=== PATIENT | male | born 2000 | race Caucasian/White ===

== ENCOUNTER 2024-01-12 20:12 | Emergency (ER) | payer OTHER ==
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
--- NOTE | 2024-01-12 21:05 | RAD REPORT ---
EXAM DESCRIPTION: RAD - Hand Right 3 View - 01/12/2024 8:58 pm CLINICAL HISTORY: PAIN COMPARISON: No comparisons FINDINGS: No fracture or dislocation.
--- NOTE | 2024-01-12 21:06 | RAD REPORT ---
EXAM DESCRIPTION: RAD - Ankle Left 3 View - 01/12/2024 8:58 pm CLINICAL HISTORY: PAIN COMPARISON: No comparisons FINDINGS: Mild soft tissue swelling. No fracture or dislocation seen.
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
[2024-01-12 21:39] VITALS: BP 133/83; TEMP 97.7; O2SAT 98
== END 2024-01-12 21:18 | disposition home or self-care (01) ==
LOC: ER 20:12
DX: S09.90XA Unspecified injury of head, initial encounter (principal); S60.221A Contusion of right hand, initial encounter; M25.572 Pain in left ankle and joints of left foot; F17.220 Nicotine dependence, chewing tobacco, uncomplicated
CPT/HCPCS: 70450; 72125; 99282

== ENCOUNTER 2025-06-04 16:46 | Emergency (ER) | payer BC ==
[2025-06-04 17:33] LABS: Absolute Lymphocytes (CBC) 2.6 K/uL (0.7-4.9); Hematocrit 44.2 % (39.6-49.0); Hemoglobin 14.9 g/dL (13.6-17.9); MCH 29.1 pg (27.0-35.0); MCHC 33.7 g/dL (32.0-36.0); MCV 86.4 fL (80-100); MPV 7.7 fL (7.6-11.3); Nucleated RBC Absolute Count 0.0 (0-0); Nucleated Red Blood Cells % 0.1 % (0-0); RBC Red Blood Cell Count 5.12 M/uL (4.33-5.43); White Blood Count 10.20 thou/uL (4.3-10.9)
[2025-06-04 17:52] LABS: ALT/SGPT 92.0 U/L (16-61); AST/SGOT 52.0 U/L (15-37); Albumin 3.8 g/dL (3.4-5.0); Albumin/Globulin Ratio 1.0 (1.1-1.8); Alkaline Phosphatase 52.0 U/L (45-117); Anion Gap 7.5 mEq/L (5.0-15.0); BUN Blood Urea Nitrogen 14.0 mg/dL (7-18); Globulin 4.0 g/dL (2.3-3.5); Glucose Level 91.0 mg/dL (74-106); Lipase 16.0 U/L (13-75); Potassium 3.5 mEq/L (3.5-5.1)
[2025-06-04] MEDS ORDERED: NA CHLORIDE 0.9% 1,000 ML ONE (19:25)
[2025-06-04] MEDS ORDERED: FAMOTIDINE 20 MG/2 ML VIAL IV ONE (19:25)
[2025-06-04] MEDS ORDERED: ONDANSETRON 4 MG/2 ML VIAL ONE (19:25)
--- NOTE | 2025-06-04 19:40 | RAD REPORT ---
EXAMINATION: CT ABDOMEN AND PELVIS WITH CONTRAST CLINICAL INDICATION: ABD PAIN TECHNIQUE: CT abdomen and pelvis was performed, after the administration of IV contrast, [facility]. Axial, sagittal and coronal reconstructions were obtained. One or more of the following dose reduction techniques were used: Automated exposure control, adjustment of the mA and k V according to patient size, and iterative reconstruction. Unless otherwise specified, incidental findings do not require dedicated imaging follow-up. COMPARISON: 03/12/2025 FINDINGS: LOWER CHEST: The visualized lung bases are clear. LIVER: Mild fatty liver is present. No focal lesion or biliary dilatation is seen. Cholecystectomy clips. SPLEEN: Normal size. No focal lesion. PANCREAS: No mass, ductal dilation, or anay-pancreatic fluid. ADRENALS: Normal; no mass. KIDNEYS: Normal size and contour. No hydronephrosis. GASTROINTESTINAL TRACT: No evidence of free air, significant intra-abdominal free fluid, bowel obstru ction or abscess. APPENDIX: Normal appendix. LYMPH NODES: Scattered upper limit of normal small bowel mesenteric nodes. MUSCULOSKELETAL: Mild multilevel spinal degenerative changes. ADDITIONAL FINDINGS: Small fat-containing umbilical hernia. Small fat-containing right inguinal herni a. IMPRESSION: Scattered mildly prominent mesenteric lymph nodes in the small bowel mesentery, nonspecific. This may indicate mild mesenteric adenitis or mesenteritis. Suggest follow-up surveillance CT in 6 months to ensure resolution.
--- NOTE | 2025-06-04 19:46 | ER ---
Nurse's Notes [facility] Name: Digna Wren Age: 24 yrs Sex: Male : 2000 Arrival Date: 06/04/2025 Time: 16:46 Bed 15 Private MD: Diagnosis: Nonspecific mesenteric lymphadenitis;Abdominal pain, Generalized;Nausea with vomiting, unspecified Presentation: 06/04 16:53 Chief complaint: Patient states: SWEATS, NAUSEA AND UPSET STOMACH THAT BEGAN A WEEK dd2 AGO, THE PAST FOUR DAYS HAVING DIARRHEA, VOMITING, NAUSEA AND WORSE ABDOMINAL PAIN. Coronavirus screen: At this time, the client does not indicate any symptoms associated with coronavirus-19. Ebola Screen: No symptoms or risks identified at this time. Initial Sepsis Screen: Does the patient meet any 2 criteria? No. Patient's initial sepsis screen is negative. Does the patient have a suspected source of infection? No. Patient's initial sepsis screen is negative. Risk Assessment: Do you want to hurt yourself or someone else? Patient reports no desire to harm self or others. Onset of symptoms was May 28, 2025. 16:53 Method Of Arrival: Ambulatory dd2 16:53 Acuity: MARTA 3 dd2 Triage Assessment: 16:58 General: Appears in no apparent distress. uncomfortable, Behavior is calm, cooperative, dd2 appropriate for age. Pain: Complains of pain in umbilical area. GI: Reports diarrhea, nausea, vomiting. Historical: - Allergies: 16:58 No Known Allergies; dd2 - PMHx: 16:58 3 hernia's; Anxiety; Hypothyroidism; dd2 - PSHx: 16:58 knee; dd2 - Immunization history:: Adult Immunizations unknown. - Infectious Disease History:: Denies. - Social history:: Smoking status: Patient denies any tobacco usage or history of. - Family history:: not pertinent. - Hospitalizations: : No recent hospitalization is reported. Screenin:[address] [facility] ED Fall Risk Assessment (Adult) History of falling in the last 3 months, rg5 including since admission No falls in past 3 months (0 pts) Confusion or Disorientation No (0 pts) Intoxicated or Sedated No (0 pts) Impaired Gait No (0 pts) Mobility Assist Device Used No (0 pt) Altered Elimination No (0 pt) Score/Fall Risk Level 0 - 2 = Low Risk Oriented to surroundings, Maintained a safe environment, Hourly rounding (assess needs \T\ fall precautionary measures) done. Abuse screen: Denies threats or abuse. Nutritional screening: No deficits noted. Tuberculosis screening: No symptoms or risk factors identified. Assessment: 19:39 General: Appears in no apparent distress. comfortable, Behavior is calm, cooperative, rg5 appropriate for age. Pain: Complains of pain in abdomen Quality of pain is described as aching. Neuro: Level of Consciousness is awake, alert, obeys commands, Oriented to person, place, time, situation. Cardiovascular: Denies chest pain. Respiratory: Airway is patent Trachea midline Respiratory effort is even, unlabored, Respiratory pattern is regular, symmetrical. GI: Bowel sounds present in left upper quadrant Abd is soft and non tender Reports upper abdominal pain, diarrhea, vomiting. : No signs and/or symptoms were reported regarding the genitourinary system. EENT: No deficits noted. Derm: Skin is intact, Skin is dry, Skin is normal, Skin temperature is warm. Musculoskeletal: Circulation, motion, and sensation intact. Range of motion: intact in all extremities. Vital Signs: 16:53 BP 158 / 85; Pulse 87; Resp 17; Temp 98.3; Pulse Ox 97% on R/A; Weight 179.17 kg; dd2 Height 6 ft. 2 in. ; Pain 3/10; 19:35 BP 144 / 82; Pulse 83; Resp 18; Pulse Ox 99% ; rg5 16:53 Body Mass Index 50.71 (179.17 kg, 187.96 cm) dd2 16:53 Pain Scale: Adult dd2 ED Course: 16:49 Patient arrived in ED. al6 16:50 Jos Oropeza PA-C is PHCP. cp 16:50 Roberto Durham MD is Attending Physician. cp 16:58 Triage completed. dd2 16:58 Arm band placed on left wrist. dd2 17:27 CBC with Diff Sent. ty 17:27 CMP Sent. ty 17:27 Lipase Sent. ty 17:27 Initial lab(s) drawn, by ED staff, sent to lab. Inserted saline lock: 20 gauge in left ty antecubital area, using aseptic technique. Blood collected. Flushed with 10 mL NS. 18:45 Miguelangel Palacio, AMOS is Primary Nurse. rg5 19:01 Attending Physician role handed off by Roberto Durham MD tt7 19:01 Mulugeta Allred DO is Attending Physician. tt7 19:06 CT Abd/Pelvis - IV Contrast Only In Process Unspecified. EDMS 19:39 Patient has correct armband on for positive identification. Bed in low position. Call rg5 light in reach. Side rails up X 1. Door closed. Noise minimized. 19:39 No provider procedures requiring assistance completed. rg5 20:00 IV discontinued, bleeding controlled, No redness/swelling at site. Pressure dressing rg5 applied. Administered Medications: 19:34 Drug: Famotidine IVP 20 mg IVP once; dilute with 10 mL 0.9% NaCl; give over 2 minutes rg5 Route: IVP; Site: right antecubital; 20:00 Follow up: Response: No adverse reaction rg5 19:34 Drug: Ondansetron IVP 4 mg IVP once; over 2 minutes Route: IVP; Site: right antecubital;rg5 20:22 Follow up: Response: No adverse reaction rg5 19:34 Drug: NS 0.9% IV 1000 ml IV at 1 bolus Per protocol; to be given as a bolus over 60 rg5 minutes Route: IV; Rate: 1 bolus; Site: right antecubital; 20:15 Follow up: IV Status: Completed infusion; IV Intake: 1000ml rg5 Medication: 19:39 VIS not applicable for this client. rg5 Intake: 20:15 IV: 1000ml; Total: 1000ml. rg5 Outcome: 19:45 Discharge ordered by . tt7 20:15 Discharged to home ambulatory, rg5 20:15 Condition: stable 20:15 Discharge instructions given to patient, Instructed on discharge instructions, Demonstrated understanding of instructions, Prescriptions given X 1, 20:17 Patient left the ED. vk Signatures: Dispatcher [employer] EDME Roberto Durham MD MD rn Page, Corey, PA-C PA-C cp Kruse, Vivian vk Yandell, Tylor ty Gallardo, Rommel, RN RN rg5 KJ CLANCY RN RN dd2 Catherine Garner al6 Mulugeta Allred DO DO tt7 Corrections: (The following items were deleted from the chart) 17:01 16:53 BP 158 / 85; Pulse 87bpm; Resp 17bpm; Pulse Ox 97% RA; Temp 98.3F; dd2 dd2
--- NOTE | 2025-06-04 19:46 | EDPHYS ---
Physician Documentation [facility] Name: Digna Wren Age: 24 yrs Sex: Male : 2000 Arrival Date: 06/04/2025 Time: 16:46 Bed 15 Private MD: ED Physician Mulugeta Allred HPI: 06/04 18:54 This 24 yrs old Male presents to ER via Ambulatory with complaints of Abdominal Pain, rn Vomiting. 18:54 Pt reports 3 months ago had cholecystectomy, has been doing fine, now a few days of rn nausea/vomiting/diarrhea. Also reports mid abd pain. . Historical: - Allergies: 16:58 No Known Allergies; dd2 - PMHx: 16:58 3 hernia's; Anxiety; Hypothyroidism; dd2 - PSHx: 16:58 knee; dd2 - Immunization history:: Adult Immunizations unknown. - Infectious Disease History:: Denies. - Social history:: Smoking status: Patient denies any tobacco usage or history of. - Family history:: not pertinent. - Hospitalizations: : No recent hospitalization is reported. ROS: 18:54 Constitutional: Negative for fever, chills, and weight loss, Cardiovascular: Negative rn for chest pain, palpitations, and edema, Respiratory: Negative for shortness of breath, cough, wheezing, and pleuritic chest pain, Abdomen/GI: + abd pain with nausea/vomiting/diarrhea MS/Extremity: Negative for injury and deformity, Skin: Negative for injury, rash, and discoloration, Neuro: Negative for headache, weakness, numbness, tingling, and seizure, Exam: 18:54 Constitutional: This is a well developed, well nourished patient who is awake, alert, rn and in no acute distress. Cardiovascular: Regular rate and rhythm. No pulse deficits. Respiratory: No increased work of breathing, no retractions or nasal flaring. Abdomen/GI: soft, mild mid abd tenderness, no rebound/guarding/peritoneal signs Vital Signs: 16:53 BP 158 / 85; Pulse 87; Resp 17; Temp 98.3; Pulse Ox 97% on R/A; Weight 179.17 kg; dd2 Height 6 ft. 2 in. ; Pain 3/10; 19:35 BP 144 / 82; Pulse 83; Resp 18; Pulse Ox 99% ; rg5 16:53 Body Mass Index 50.71 (179.17 kg, 187.96 cm) dd2 16:53 Pain Scale: Adult dd2 MDM: 16:56 Medical Screening Exam initiated rn 19:58 Differential diagnosis: Nonspecific abd pain, gastritis, pancreatitis, appendicitis, tt7 diverticulitis, viral gastroenteritis, gastroenteritis. Data reviewed: vital signs, nurses notes, lab test result(s), radiologic studies. ED course: I took over care of this patient at shift change at [address] Durham, this is a 24-year-old male who presented with some mid abdominal pain, nausea/vomiting/diarrhea, vital signs are stable, physical exam is reassuring, no peritoneal signs, laboratory studies are overall reassuring, patient was provided with antiemetic and IV fluids, CT imaging demonstrated findings consistent with mild mesenteric adenitis, I believe this fits the patient's symptoms, I reassessed the patient who is feeling well, discussed the diagnosis and expected clinical course, usually self-limiting, after completion of the patient's emergency department evaluation, I do not suspect a life-threatening or disabling process. Patient is medically stable and not in need of emergent medical intervention. I had a detailed discussion with the patient regarding the historical points, exam findings, emergency department evaluation, diagnostic results, and the discharge diagnosis. I instructed the patient on outpatient management of their condition. I discussed the need for outpatient follow-up with a primary care physician. I informed the patient on return precautions, including the need to return to the ED if symptoms do not improve, worsen, or if there are any questions or concerns that arise at home. The patient was discharged in stable condition. 06/04 17:02 Order name: CBC with Diff; Complete Time: 18:32 rn 06/04 17:02 Order name: CMP; Complete Time: 18:32 rn 06/04 17:02 Order name: Lipase; Complete Time: 18:32 rn 06/04 17:02 Order name: CT Abd/Pelvis - IV Contrast Only; Complete Time: 19:41 rn 06/04 17: Order name: IV Saline Lock; Complete Time: 17:27 rn 06/04 17:02 Order name: Labs collected and sent; Complete Time: 17:27 rn Administered Medications: 19:34 Drug: Famotidine IVP 20 mg IVP once; dilute with 10 mL 0.9% NaCl; give over 2 minutes rg5 Route: IVP; Site: right antecubital; 20:00 Follow up: Response: No adverse reaction rg5 19:34 Drug: Ondansetron IVP 4 mg IVP once; over 2 minutes Route: IVP; Site: right antecubital;rg5 20:22 Follow up: Response: No adverse reaction rg5 19:34 Drug: NS 0.9% IV 1000 ml IV at 1 bolus Per protocol; to be given as a bolus over 60 rg5 minutes Route: IV; Rate: 1 bolus; Site: right antecubital; 20:15 Follow up: IV Status: Completed infusion; IV Intake: 1000ml rg5 Disposition: 20:01 Co-signature as Attending Physician, Mulugeta Allred DO. tt7 Disposition Summary: 06/04/25 19:45 Discharge Ordered Notes: Location: Home tt7 Problem: new tt7 Symptoms: have improved tt7 Condition: Stable tt7 Diagnosis - Nonspecific mesenteric lymphadenitis tt7 - Abdominal pain, Generalized tt7 - Nausea with vomiting, unspecified tt7 Followup: tt7 - With: Emergency Department - When: As needed - Reason: Followup: tt7 - With: Private Physician - When: 1 - 2 days - Reason: Recheck today's complaints, Re-evaluation by your physician Discharge Instructions: - Discharge Summary Sheet tt7 - Mesenteric Adenitis, Pediatric tt7 Forms: - Medication Reconciliation Form tt7 - Antibiotic Education tt7 - Prescription Opioid Use tt7 - Patient Portal Instructions tt7 - Leadership Thank You Letter tt7 Prescriptions: - ondansetron HCl 4 mg Oral tablet - take 1 tablet ORAL route every 8 to 12 hours As needed as needed for nausea and tt7 vomiting; 20 tablet; Refills: 0, Product Selection Permitted Signatures: Dispatcher [employer] EDMS Roberto Durham MD MD rn Gallardo, Rommel RN RN rg5 KJ CLANCY RN RN dd2 Mulugeta Allred DO DO tt7 Corrections: (The following items were deleted from the chart) 17:02 17:02 CBC+H.LAB.BRZ ordered. EDMS EDMS 17:02 17:02 COMPREHENSIVE METABOLIC PANEL+C.LAB.BRZ ordered. EDMS EDMS 17:02 17:02 LIPASE+C.LAB.BRZ ordered. EDMS EDMS 17:03 17:03 Abdomen Pelvis W Con+CT.RAD.BRZ ordered. EDMS EDMS
[2025-06-04 20:52] VITALS: BP 158/85; TEMP 98.3; O2SAT 97
== END 2025-06-04 20:17 | disposition home or self-care (01) ==
LOC: ER 16:46
DX: I88.0 Nonspecific mesenteric lymphadenitis (principal); R11.2 Nausea with vomiting, unspecified
CPT/HCPCS: 96361; 85025; 36415; 83690; 80053; 74177; 96375; 96374; 99284; Q9967; J2405; J7030

== ENCOUNTER 2025-06-30 19:41 | Emergency (ER) | payer BC ==
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
== END 2025-06-30 21:26 | disposition home or self-care (01) ==
LOC: ER 19:41
DX: M79.604 Pain in right leg (principal)
CPT/HCPCS: 99282